=== PATIENT | female | born 1990 | race American Indian/Alaskan Native ===

== ENCOUNTER 2018-03-03 10:43 | Emergency (ER) | payer BC ==
[2018-03-03 10:51] VITALS: TEMP 98
[2018-03-03] MEDS ORDERED: Sodium Chloride 0.9% 1,000 ML IV ONE (11:19)
[2018-03-03] MEDS ORDERED: Aspirin 325 mg EC Tablets PO STA (11:19)
[2018-03-03 11:35] VITALS: PULSE 70
[2018-03-03 11:42] LABS: BASO % 0.7 % (0.0-2.0); EOS # 0.2 K/uL (0.0-0.7); EOS % 4.2 % (0.0-4.0); HEMOGLOBIN 12.4 g/dL (11.0-16.0); LYMPH # 1.5 K/uL (1.0-4.3); LYMPH % 27.5 % (20.0-40.0); MEAN CELL VOLUME 90.9 fL (81.0-99.0); MEAN CORPUSCULAR HEMOGLOBIN 30.5 pg (27.0-31.0); MEAN CORPUSCULAR HGB CONC 33.6 g/dL (33.0-37.0); MEAN PLATELET VOLUME 10.5 fL (7.2-11.7); MONO # 0.3 K/uL (0.0-0.8); MONO % 5.7 % (0.0-10.0); NEUT # 3.4 K/uL (1.8-7.0); NEUT % 61.9 % (50.0-75.0); RBC 4.06 Mil/uL (3.80-5.20); RED CELL DISTRIBUTION WIDTH 14.6 % (11.5-14.5); WHITE BLOOD COUNT 5.5 K/uL (4.8-10.8)
[2018-03-03] MEDS ORDERED: Aspirin 325 mg EC Tablets PO ONE (11:42)
[2018-03-03] MEDS ORDERED: Sodium Chloride 0.9% 1,000 ML ONE (11:42)
[2018-03-03 11:46] LABS: HCG,QUALITATIVE URINE NEGATIVE (NEGATIVE)
[2018-03-03 11:50] LABS: INR 1.2; PROTHROMBIN TIME 13.5 SECONDS (9.7-12.2)
[2018-03-03 11:54] LABS: SQUAMOUS EPITHIAL 1 /hpf (0-5); URINE BILIRUBIN NEGATIVE (NEGATIVE); URINE BLOOD 2+ (NEGATIVE); URINE CLARITY Clear (Clear); URINE COLOR Yellow (YELLOW); URINE GLUCOSE (UA) NORMAL (Normal); URINE LEUKOCYTE ESTERASE NEG Leu/uL (Negative); URINE PROTEIN NEGATIVE (NEGATIVE); URINE UROBILINOGEN NORMAL mg/dL (0.2-1.0)
--- NOTE | 2018-03-03 11:55 | C.PDOC ---
History Of Present Illness 27 year old female presents to the ED complaining of right upper back pain for 2 days. Reports pain radiates to chest and is worse on deep inspiration, cough, and yawning. Notes chest pain felt sharp today which prompted ED visit. Denies any headache, dizziness, weakness, numbness, or shortness of breath. Time Seen by Provider: 03/03/18 10:56 Chief Complaint (Nursing): Chest Pain History Per: Patient History/Exam Limitations: no limitations Onset/Duration Of Symptoms: Days (2) Current Symptoms Are (Timing): Still Present Past Medical History Reviewed: Historical Data, Nursing Documentation, Vital Signs Vital Signs: Last Vital Signs Temp 98 F 03/03/18 10:46 Pulse 70 03/03/18 11:20 Resp 18 03/03/18 10:46 BP 141/95 H 03/03/18 11:20 Pulse Ox 97 03/03/18 10:46 - Medical History PMH: No Chronic Diseases Surgical History: No Surg Hx Family History: States: No Known Family Hx - Social History Hx Alcohol Use: No Hx Substance Use: No - Immunization History Hx Tetanus Toxoid Vaccination: Yes Hx Influenza Vaccination: No Hx Pneumococcal Vaccination: No Review Of Systems Constitutional: Negative for: Fever, Chills Cardiovascular: Positive for: Chest Pain Respiratory: Positive for: Cough. Negative for: Shortness of Breath Musculoskeletal: Positive for: Back Pain Neurological: Negative for: Weakness, Numbness, Headache, Dizziness Physical Exam - Physical Exam Appears: Non-toxic, No Acute Distress Skin: Warm, Dry, No Rash Head: Normacephalic Eye(s): bilateral: Normal Inspection Nose: Normal Oral Mucosa: Moist Neck: Supple Chest: Symmetrical, Tenderness (midsternal chest wall tenderness) Cardiovascular: Rhythm Regular Respiratory: Normal Breath Sounds, No Rales, No Rhonchi, No Wheezing Gastrointestinal/Abdominal: Soft, No Tenderness Back: Normal Inspection, No CVA Tenderness, No Vertebral Tenderness, No Paraspinal Tenderness Extremity: Bilateral: Atraumatic, Normal Color And Temperature, Normal ROM Neurological/Psych: Oriented x3, Normal Speech Gait: Steady ED Course And Treatment - Laboratory Results Result Diagrams: 03/03/18 11:39 03/03/18 11:39 ECG: Interpreted By Me, Viewed By Me ECG Rhythm: Sinus Bradycardia, 1st Degree HB ECG Interpretation: No Acute Changes Rate From EC O2 Sat by Pulse Oximetry: 97 (RA) Pulse Ox Interpretation: Normal - Other Rad CXR X-Ray: Viewed By Me, Read By Radiologist Interpretation: FINDINGS: LINES AND TUBES: None. LUNG AND PLEURA: The lungs are well inflated and clear. There is mild pulmonary venous congestion no pleural effusion or pneumothorax. HEART AND MEDIASTINUM: There is mild cardio megaly. No aortic atherosclerotic calcification present. The hilar and mediastinal contours are within normal limits. SKELETAL STRUCTURES: The bony structures are within normal limits for the patient's age. There an S-shaped scoliosis in the thoracolumbar spine. VISUALIZED UPPER ABDOMEN: Normal. OTHER FINDINGS: None. IMPRESSION: No active pulmonary disease. Mild cardiomegaly. Medical Decision Making Medical Decision Making: Plan - EKG - CXR - Bloodwork - UA - Aspirin 325mg PO - IV fluids On re-examination, patient is resting comfortably in no acute distress. Patient reports improvement of symptoms. Patient feels comfortable going home and will be discharged. Patient given follow up instructions. Instructed to return to ER if symptoms worsen or new symptoms arise. Disposition Counseled Patient/Family Regarding: Diagnosis, Need For Followup, Rx Given - Disposition Referrals: Savannah Perez MD [Medical Doctor] - Disposition: HOME/ ROUTINE Disposition Time: 12:18 Condition: GOOD Additional Instructions: Follow up with your primary medical doctor or clinic in 2-5 days for further evaluation. Take medications as prescribed. Return to the emergency department at any time if symptoms persist or worsen. Prescriptions: Azithromycin [Zithromax] 250 mg PO DAILY #6 tab predniSONE [predniSONE Tab] 40 mg PO DAILY #10 tab Instructions: Pleuritic Chest Pain Forms: [employer] (Turkmen) - POA Present On Arrival: None - Clinical Impression Clinical Impression: Pleuritic pain - PA / [employer] / Resident Statement MD/DO has reviewed & agrees with the documentation as recorded. - Scribe Statement The provider has reviewed the documentation as recorded by the Scribe Racquel Breen All medical record entries made by the Scribe were at my direction and personally dictated by me. I have reviewed the chart and agree that the record accurately reflects my personal performance of the history, physical exam, medical decision making, and the department course for this patient. I have also personally directed, reviewed, and agree with the discharge instructions and disposition.
[2018-03-03 12:02] LABS: ALB/GLOB RATIO 1.4 (1.0-2.1); ALBUMIN 4.4 g/dL (3.5-5.0); ALT/SGPT 23 U/L (9-52); AST/SGOT 20 U/L (14-36); BLOOD UREA NITROGEN 10 mg/dL (7-17); GFR NON-AFRICAN AMERICAN > 60; HDL CHOLESTEROL 33 mg/dL (30-70)
[2018-03-03 12:05] LABS: LDL CHOLESTEROL 65 mg/dL (0-129)
[2018-03-03 12:06] LABS: B-TYPE NATRIURETIC PEPTIDE 36.5 pg/mL (0-450)
--- NOTE | 2018-03-03 12:33 | RAD ---
Date of service: 03/03/2018 HISTORY: Chest pain COMPARISON: No prior. TECHNIQUE: Chest PA and lateral FINDINGS: LINES AND TUBES: None. LUNG AND PLEURA: The lungs are well inflated and clear. There is mild pulmonary venous congestion no pleural effusion or pneumothorax. HEART AND MEDIASTINUM: There is mild cardiomegaly. No aortic atherosclerotic calcification present. The hilar and mediastinal contours are within normal limits. SKELETAL STRUCTURES: The bony structures are within normal limits for the patient's age. There an S-shaped scoliosis in the thoracolumbar spine. VISUALIZED UPPER ABDOMEN: Normal. OTHER FINDINGS: None. IMPRESSION: No active pulmonary disease. Mild cardiomegaly.
[2018-03-03 12:34] VITALS: BP 119/78; RESP 20
[2018-03-03 12:43] VITALS: O2SAT 97
--- NOTE | 2018-03-04 11:56 | CARD ---
APPROVED REPORT Date of service: 03/03/2018 EKG Measurement Heart [id number] <Conclusion> Sinus bradycardia with sinus arrhythmia with 1st degree AV block Possible Left atrial enlargement Borderline ECG
== END 2018-03-03 12:39 | disposition home or self-care (01) ==
LOC: C.ER 10:43
DX: R07.81 Pleurodynia (principal)
CPT/HCPCS: 71046; 80053; 80061; 81001; 83880; 84484; 84703; 85025; 85610; 85730; 93005; 96360; 99285; J7030